=== PATIENT | female | born 1930 | race African-American/Black ===

== ENCOUNTER 2018-09-26 13:25 | Inpatient (IN) ==
[2018-09-26] MEDS ORDERED: ONDANSETRON 4 MG/2 ML VIAL IV STA (14:32)
[2018-09-26] MEDS ORDERED: LEVOFLOXACIN INJ 750 MG in PREMIX 1 EACH IV STA (14:32)
[2018-09-26] MEDS ORDERED: methylPREDNISolone SOD SUC 125 MG/2 ML VIAL IV STA (14:32)
[2018-09-26] MEDS ORDERED: PANTOPRAZOLE 40 MG VIAL IV STA (14:32)
[2018-09-26] MEDS ORDERED: ALBUTEROL NEB SOLN 5 MG/ML 20 ML/BOTTLE RESP TX SCH (15:00)
[2018-09-26 15:39] LABS: Basophils # 0.1 10*3/uL (0.0-0.2); Basophils % 1.1 % (0.0-0.8); Eosinophils # 0.2 10*3/uL (0.0-0.87); Eosinophils % 2.3 % (0.00-10.9); Hematocrit 31.9 VOL% (35.7-47.0); Hemoglobin 9.4 GM/DL (12.0-16.0); Immature Granulocytes % 0.3 %; Immature Granulocytes Absolute 0.02 #; Lymphocytes # 1.6 10*3/uL (1.4-4.0); Lymphocytes % 23.2 % (21.3-54.2); Mean Corpuscular HGB Conc 29.5 GM/DL (32-36); Mean Corpuscular Hemoglobin 25 PG (27-34); Mean Corpuscular Volume 85.5 FL (87-102); Mean Platelet Volume 11.6 FL (9.6-12.0); Monocytes # 0.8 10*3/uL (0.11-0.8); Monocytes % 10.7 % (1.7-12.7); Neutrophils # 4.4 10*3/uL (1.4-7.4); Neutrophils % 62.4 % (38.7-73.9); Platelet Count 253 T/CUMM (130-400); Red Blood Count 3.73 MC/CUMM (3.8-5.5); Red Cell Distribution Width 16.1 % (9.3-17.3)
[2018-09-26 15:48] LABS: Partial Thromboplastin Time 28.6 SECS (0-40)
[2018-09-26 15:58] LABS: Albumin 3.2 G/DL (3.4-5.0); Bilirubin,Total 0.4 MG/DL (0.2-1.0); Calcium 8.4 MG/DL (8.5-10.1); Potassium 4.1 MMOL/L (3.5-5.1); Total Protein 7.2 G/DL (6.4-8.3)
[2018-09-26 16:00] LABS: Troponin I < 0.015 NG/ML (0.00-0.045)
[2018-09-26 16:01] LABS: Apearance,Urine CLEAR (Clear); Bilirubin,Urine Negative (Negative); Blood, Urine Negative (Negative); Glucose,Urine (UA) Negative (Negative); Hyaline Casts,Urine 1 /LPF (0-3); Ketones,Urine Negative (Negative); Mucus,Urine Occasional /LPF (Occasional); Nitrite,Urine Negative (Negative); Protein,Urine Negative; RBC,Urine 2 /HPF (0-4); Squamous Epithelial Cell,Urine Occasional /HPF (0-10); Urine Color Yellow (Yellow); Urine Specific Gravity 1.015 (1.001-1.035); Urine Urobilinogen < 2.0 EU/DL (0.2-1.0); WBC,Urine 7 /HPF (0-6)
[2018-09-26] MEDS ORDERED: BENZONATATE 100 MG CAPSULE PO PRN (17:39)
[2018-09-26] MEDS ORDERED: ACETAMINOPHEN 325 MG TABLET PO PRN (17:43)
[2018-09-26] MEDS ORDERED: DEXTROSE 50% 25 GM/50 ML SYRINGE IV PRN (17:43)
[2018-09-26] MEDS ORDERED: GLUCAGON 1 MG VIAL IM PRN (17:43)
[2018-09-26] MEDS ORDERED: ONDANSETRON 4 MG/2 ML VIAL IV PRN (17:43)
[2018-09-26] MEDS: ALBUTEROL/IPRATROPIUM 3 ML NEB RESP TX SCH (19:59)
[2018-09-26] MEDS ORDERED: LINEZOLID INJ 600 MG in PREMIX 1 EACH IV SCH (21:00)
[2018-09-26] MEDS: INSULIN REGULAR 100 UNIT/ML SUBCUT SCH (22:09)
[2018-09-26] MEDS: APIXABAN 2.5 MG TABLET PO SCH (22:10)
[2018-09-26] MEDS: guaiFENesin/DM ER 600-30 MG TABLET PO SCH (22:10)
[2018-09-26] MEDS: ATORVASTATIN 40 MG TABLET PO SCH (22:10)
[2018-09-27] MEDS: ALBUTEROL/IPRATROPIUM 3 ML NEB RESP TX SCH ×4 (01:06→19:15)
[2018-09-27 05:23] LABS: Basophils % 0.2 % (0.0-0.8); Hematocrit 28.9 VOL% (35.7-47.0); Hemoglobin 8.4 GM/DL (12.0-16.0); Immature Granulocytes % 0.7 %; Immature Granulocytes Absolute 0.03 #; Lymphocytes # 0.4 10*3/uL (1.4-4.0); Lymphocytes % 9.2 % (21.3-54.2); Mean Corpuscular HGB Conc 29.1 GM/DL (32-36); Mean Corpuscular Hemoglobin 26 PG (27-34); Mean Corpuscular Volume 87.6 FL (87-102); Mean Platelet Volume 11.4 FL (9.6-12.0); Monocytes # 0.1 10*3/uL (0.11-0.8); Neutrophils # 3.9 10*3/uL (1.4-7.4); Neutrophils % 87.9 % (38.7-73.9); Platelet Count 202 T/CUMM (130-400); Red Cell Distribution Width 15.9 % (9.3-17.3); White Blood Count 4.5 T/CUMM (4-12)
[2018-09-27 05:54] LABS: Calcium 8.7 MG/DL (8.5-10.1); Osmolality,Calculated 295.5 MOS/KG (273-304); Potassium 4.4 MMOL/L (3.5-5.1)
[2018-09-27] MEDS ORDERED: SODIUM CHLORIDE 0.9% 1,000 ML IV SCH (07:30)
[2018-09-27] MEDS ORDERED: FUROSEMIDE 20 MG TABLET PO SCH (09:00)
[2018-09-27] MEDS: INSULIN REGULAR 100 UNIT/ML SUBCUT SCH ×4 (09:22→21:41)
[2018-09-27] MEDS: amLODIPine 10 MG TABLET PO SCH (09:22)
[2018-09-27] MEDS: FERROUS SULFATE 325 MG TABLET PO SCH (09:22)
[2018-09-27] MEDS: NEBIVOLOL 5 MG TABLET PO SCH (09:22)
[2018-09-27] MEDS: APIXABAN 2.5 MG TABLET PO SCH ×2 (09:22→21:16)
[2018-09-27] MEDS: guaiFENesin/DM ER 600-30 MG TABLET PO SCH ×2 (09:23→21:16)
[2018-09-27] MEDS: PANTOPRAZOLE 40 MG TABLET PO SCH (09:23)
[2018-09-27] MEDS: DICLOFENAC 1% GEL 100 GM TUBE TOP SCH ×3 (10:33→21:17)
[2018-09-27] MEDS ORDERED: LEVOFLOXACIN INJ 750 MG in PREMIX 1 EACH IV SCH (15:00)
[2018-09-27] MEDS: FUROSEMIDE 40 MG/4 ML VIAL IV SCH (16:03)
[2018-09-27] MEDS: INSULIN NPH/REGULAR 70/30 100 UNIT/ML SUBCUT SCH (16:27)
[2018-09-27] MEDS: ATORVASTATIN 40 MG TABLET PO SCH (17:29)
[2018-09-28] MEDS: ALBUTEROL/IPRATROPIUM 3 ML NEB RESP TX SCH ×4 (00:15→19:23)
[2018-09-28 05:05] LABS: Basophils % 0.1 % (0.0-0.8); Hematocrit 28.6 VOL% (35.7-47.0); Hemoglobin 8.4 GM/DL (12.0-16.0); Immature Granulocytes % 0.4 %; Immature Granulocytes Absolute 0.04 #; Lymphocytes # 0.7 10*3/uL (1.4-4.0); Lymphocytes % 7.4 % (21.3-54.2); Mean Corpuscular HGB Conc 29.4 GM/DL (32-36); Mean Corpuscular Hemoglobin 26 PG (27-34); Mean Corpuscular Volume 87.5 FL (87-102); Mean Platelet Volume 11.3 FL (9.6-12.0); Monocytes # 0.7 10*3/uL (0.11-0.8); Monocytes % 7.9 % (1.7-12.7); NRBC # 0.02 10*3/uL; Neutrophils # 7.6 10*3/uL (1.4-7.4); Neutrophils % 84.2 % (38.7-73.9); Platelet Count 231 T/CUMM (130-400); Red Blood Count 3.27 MC/CUMM (3.8-5.5); Red Cell Distribution Width 16.3 % (9.3-17.3)
[2018-09-28 05:19] LABS: Osmolality,Calculated 297.4 MOS/KG (273-304); Potassium 4.6 MMOL/L (3.5-5.1)
[2018-09-28] MEDS ORDERED: INSULIN NPH/REGULAR 70/30 100 UNIT/ML SUBCUT SCH ×2 (07:30→10:37)
[2018-09-28] MEDS ORDERED: LEVOFLOXACIN INJ 750 MG in PREMIX 1 EACH IV SCH (09:00)
[2018-09-28] MEDS: INSULIN REGULAR 100 UNIT/ML SUBCUT SCH ×4 (10:13→20:47)
[2018-09-28] MEDS: FUROSEMIDE 40 MG/4 ML VIAL IV SCH (10:13)
[2018-09-28] MEDS: guaiFENesin/DM ER 600-30 MG TABLET PO SCH ×2 (10:14→20:23)
[2018-09-28] MEDS: PANTOPRAZOLE 40 MG TABLET PO SCH (10:14)
[2018-09-28] MEDS: NEBIVOLOL 5 MG TABLET PO SCH (10:14)
[2018-09-28] MEDS: APIXABAN 2.5 MG TABLET PO SCH ×2 (10:15→20:23)
[2018-09-28] MEDS: amLODIPine 10 MG TABLET PO SCH (10:15)
[2018-09-28] MEDS: FERROUS SULFATE 325 MG TABLET PO SCH (10:15)
[2018-09-28] MEDS: DICLOFENAC 1% GEL 100 GM TUBE TOP SCH ×3 (11:58→20:23)
[2018-09-28] MEDS: INSULIN NPH/REGULAR 70/30 100 UNIT/ML SUBCUT SCH (16:47)
[2018-09-28] MEDS: ATORVASTATIN 40 MG TABLET PO SCH (17:49)
[2018-09-29] MEDS: ALBUTEROL/IPRATROPIUM 3 ML NEB RESP TX SCH ×2 (01:00→07:45)
[2018-09-29 05:35] LABS: Basophils % 0.1 % (0.0-0.8); Eosinophils % 0.1 % (0.00-10.9); Hematocrit 27.6 VOL% (35.7-47.0); Hemoglobin 8.1 GM/DL (12.0-16.0); Immature Granulocytes % 0.6 %; Immature Granulocytes Absolute 0.04 #; Lymphocytes # 1.3 10*3/uL (1.4-4.0); Lymphocytes % 18.6 % (21.3-54.2); Mean Corpuscular HGB Conc 29.3 GM/DL (32-36); Mean Corpuscular Hemoglobin 25 PG (27-34); Monocytes # 0.7 10*3/uL (0.11-0.8); Monocytes % 9.5 % (1.7-12.7); Neutrophils # 5.1 10*3/uL (1.4-7.4); Neutrophils % 71.1 % (38.7-73.9); Platelet Count 254 T/CUMM (130-400); Red Blood Count 3.21 MC/CUMM (3.8-5.5); Red Cell Distribution Width 16.4 % (9.3-17.3); White Blood Count 7.1 T/CUMM (4-12)
[2018-09-29 05:57] LABS: Potassium 3.9 MMOL/L (3.5-5.1)
[2018-09-29 07:55] VITALS: BP 122/63
[2018-09-29] MEDS ORDERED: FUROSEMIDE 40 MG/4 ML VIAL IV SCH (09:00)
[2018-09-29] MEDS: INSULIN REGULAR 100 UNIT/ML SUBCUT SCH (09:39)
[2018-09-29] MEDS: PANTOPRAZOLE 40 MG TABLET PO SCH (09:41)
[2018-09-29] MEDS: NEBIVOLOL 5 MG TABLET PO SCH (09:41)
[2018-09-29] MEDS: APIXABAN 2.5 MG TABLET PO SCH (09:41)
[2018-09-29] MEDS: amLODIPine 10 MG TABLET PO SCH (09:41)
[2018-09-29] MEDS: DICLOFENAC 1% GEL 100 GM TUBE TOP SCH (09:41)
[2018-09-29] MEDS: guaiFENesin/DM ER 600-30 MG TABLET PO SCH (09:41)
[2018-09-29] MEDS: FERROUS SULFATE 325 MG TABLET PO SCH (09:41)
== END 2018-09-29 11:45 | disposition home health service (06) | DRG 193 ==
LOC: N.ED 13:25 → SUATTDRO 17:43 → N.EDINP 17:43 → N.2E 19:32
PROVIDERS: ADMIT Hospitalist; ATTEND Internal Medicine

== ENCOUNTER 2020-02-06 23:18 | Inpatient (IN) ==
[2020-02-07] MEDS ORDERED: ASPIRIN 325 MG TABLET PO STA (00:12)
[2020-02-07] MEDS ORDERED: SODIUM CHLORIDE 0.9% 500 ML IV STA (00:12)
[2020-02-07] MEDS ORDERED: ONDANSETRON 4 MG/2 ML VIAL IV STA (00:13)
[2020-02-07 00:52] LABS: Apearance,Urine CLEAR (Clear); Bacteria,Urine Occasional /HPF (Few); Bilirubin,Urine Negative (Negative); Blood, Urine Negative (Negative); Glucose,Urine (UA) Negative (Negative); Hyaline Casts,Urine 1 /LPF (0-3); Ketones,Urine Negative (Negative); Mucus,Urine Occasional /LPF (Occasional); Nitrite,Urine Negative (Negative); Protein,Urine >=500 MG/DL; RBC,Urine 1 /HPF (0-4); Squamous Epithelial Cell,Urine Occasional /HPF (0-10); Urine Color Yellow (Yellow); Urine Specific Gravity 1.015 (1.001-1.035); Urine Urobilinogen < 2.0 EU/DL (0.2-1.0); WBC,Urine 5 /HPF (0-6)
[2020-02-07 01:21] LABS: Alanine Aminotransferase 15 U/L (13-56); Albumin 3.4 G/DL (3.4-5.0); Alkaline Phosphatase 81 U/L (45-117); Aspartate Amino Transferase 30 U/L (0-37); Bilirubin,Total < 0.39 MG/DL (0.2-1.0); Blood Urea Nitrogen 24 MG/DL (7-18); Calcium 8.8 MG/DL (8.5-10.1); Estimated Glom Filtration Rate 30 ML/MIN; Glucose 107 MG/DL (74-106); Osmolality,Calculated 282.4 MOS/KG (273-304); Total Protein 7.8 G/DL (6.4-8.3)
[2020-02-07] MEDS ORDERED: ENOXAPARIN 100 MG/ML SYRINGE SUBCUT STA (01:25)
[2020-02-07 01:29] LABS: Basophils % 0.6 % (0.0-0.8); Eosinophils % 0.6 % (0.00-10.9); Hematocrit 38.4 VOL% (35.7-47.0); Hemoglobin 11.6 GM/DL (12.0-16.0); Immature Granulocytes % 0.3 %; Immature Granulocytes Absolute 0.01 #; Lymphocytes # 2.4 10*3/uL (1.4-4.0); Lymphocytes % 70.5 % (21.3-54.2); Mean Corpuscular HGB Conc 30.2 GM/DL (32-36); Mean Corpuscular Volume 85.7 FL (87-102); Mean Platelet Volume 11.9 FL (9.6-12.0); Monocytes % 9.6 % (1.7-12.7); Neutrophils % 18.4 % (38.7-73.9); Platelet Count 170 T/CUMM (130-400); Red Blood Count 4.48 MC/CUMM (3.8-5.5); Red Cell Distribution Width 15.4 % (9.3-17.3); White Blood Count 3.4 T/CUMM (4-12)
[2020-02-07 01:30] LABS: PT Patient Result 11.1 SECS (9.8-11.9); Partial Thromboplastin Time 27.7 SECS (23.9-33.8)
[2020-02-07 01:42] LABS: Barbiturates Screen,Urine Negative (Negative); Benzodiazepines Screen,Urine Negative (Negative); Cannabinoid Screen,Urine Negative (Negative); Opiate Screen,Urine Negative (Negative); Phencyclidine Screen,Urine Negative (Negative)
[2020-02-07 01:54] LABS: Hypochromasia Slight; Lymphocytes 77 % (20-55); Platelet Estimate Normal; Segmented Neutrophils 15 % (50-85); Total Cells Counted 100
[2020-02-07] MEDS ORDERED: ONDANSETRON 4 MG/2 ML VIAL IV PRN (02:10)
[2020-02-07] MEDS ORDERED: DEXTROSE 50% 25 GM/50 ML VIAL IV PRN (02:10)
[2020-02-07] MEDS ORDERED: ACETAMINOPHEN 325 MG TABLET PO PRN (02:10)
[2020-02-07] MEDS ORDERED: GLUCAGON 1 MG VIAL IM PRN (02:10)
[2020-02-07] MEDS ORDERED: ALBUTEROL 2.5 MG/3 ML NEB RESP TX PRN (04:09)
[2020-02-07] MEDS ORDERED: hydrALAZINE 20 MG/1 ML VIAL IV PRN (04:09)
[2020-02-07 06:04] LABS: Basophils % 0.4 % (0.0-0.8); Eosinophils % 0.4 % (0.00-10.9); Hematocrit 37.1 VOL% (35.7-47.0); Hemoglobin 11.2 GM/DL (12.0-16.0); Lymphocytes # 1.8 10*3/uL (1.4-4.0); Lymphocytes % 64.4 % (21.3-54.2); Mean Corpuscular HGB Conc 30.2 GM/DL (32-36); Mean Corpuscular Volume 85.7 FL (87-102); Mean Platelet Volume 12.3 FL (9.6-12.0); Monocytes % 10.2 % (1.7-12.7); Neutrophils % 24.6 % (38.7-73.9); Platelet Count 159 T/CUMM (130-400); Red Blood Count 4.33 MC/CUMM (3.8-5.5); Red Cell Distribution Width 15.4 % (9.3-17.3); White Blood Count 2.8 T/CUMM (4-12)
[2020-02-07 06:15] LABS: Bilirubin,Total 1.2 MG/DL (0.2-1.0); Calcium 8.4 MG/DL (8.5-10.1); Osmolality,Calculated 283.3 MOS/KG (273-304); Total Protein 6.9 G/DL (6.4-8.3)
[2020-02-07 06:18] LABS: Risk Ratio 3.74; VLDL CHOLESTEROL 27.4 MG/DL
[2020-02-07 06:29] LABS: Eosinophils 2 % (0-10); Lymphocytes 57 % (20-55); Platelet Estimate Adequate; Segmented Neutrophils 28 % (50-85); Total Cells Counted 100
[2020-02-07 06:30] LABS: Atypical Lymphocytes Few; Hypochromasia Slight
[2020-02-07] MEDS: INSULIN REGULAR 100 UNIT/ML SUBCUT SCH ×4 (08:16→21:59)
[2020-02-07] MEDS: APIXABAN 2.5 MG TABLET PO SCH ×2 (09:24→21:57)
[2020-02-07] MEDS: FERROUS SULFATE 325 MG TABLET PO SCH (09:24)
[2020-02-07] MEDS: NEBIVOLOL 5 MG TABLET PO SCH (09:24)
[2020-02-07] MEDS ORDERED: ATORVASTATIN 40 MG TABLET PO SCH (18:00)
[2020-02-08] MEDS: INSULIN REGULAR 100 UNIT/ML SUBCUT SCH ×2 (07:34→12:21)
[2020-02-08] MEDS: NEBIVOLOL 5 MG TABLET PO SCH (09:15)
[2020-02-08] MEDS: APIXABAN 2.5 MG TABLET PO SCH (09:15)
[2020-02-08] MEDS: FERROUS SULFATE 325 MG TABLET PO SCH (09:16)
[2020-02-08] MEDS ORDERED: ASPIRIN EC 81 MG TABLET PO SCH (10:30)
[2020-02-08 12:02] VITALS: BP 138/84
== END 2020-02-08 14:46 | disposition home health service (06) | DRG 281 ==
LOC: N.ED 23:18 → SUATTDRO 02-07 02:17 → N.EDINP 02-07 02:17 → N.TELES 02-07 03:26
PROVIDERS: ADMIT Internal Medicine; ATTEND Internal Medicine

== ENCOUNTER 2020-05-31 11:08 | Observation (INO) ==
[2020-05-31 15:02] LABS: Calcium 8.7 MG/DL (8.5-10.1)
[2020-05-31 15:10] LABS: Albumin 3.6 G/DL (3.4-5.0); Bilirubin,Total 0.57 MG/DL (0.2-1.0); Osmolality,Calculated 293.8 MOS/KG (273-304); Total Protein 7.8 G/DL (6.4-8.3)
[2020-05-31] MEDS ORDERED: DOCUSATE SODIUM 100 MG CAPSULE PO PRN (16:21)
[2020-05-31] MEDS ORDERED: DEXTROSE 50% 25 GM/50 ML VIAL IV PRN (16:21)
[2020-05-31] MEDS ORDERED: GLUCAGON 1 MG VIAL IM PRN (16:21)
[2020-05-31] MEDS ORDERED: ONDANSETRON 4 MG/2 ML VIAL IV PRN (16:21)
[2020-05-31] MEDS ORDERED: ACETAMINOPHEN 325 MG TABLET PO PRN (16:21)
[2020-05-31 16:54] LABS: Hematocrit 41.6 VOL% (35.7-47.0); Immature Granulocytes % 0.3 %; Immature Granulocytes Absolute 0.01 #; Lymphocytes # 0.3 10*3/uL (1.4-4.0); Lymphocytes % 7.4 % (21.3-54.2); Mean Corpuscular HGB Conc 31.3 GM/DL (32-36); Mean Corpuscular Volume 83.9 FL (87-102); Mean Platelet Volume 12.2 FL (9.6-12.0); Monocytes % 5.4 % (1.7-12.7); NRBC # 0.04 10*3/uL; Neutrophils % 86.9 % (38.7-73.9); Platelet Count 201 T/CUMM (130-400); Red Blood Count 4.96 MC/CUMM (3.8-5.5); Red Cell Distribution Width 17.6 % (9.3-17.3); White Blood Count 3.5 T/CUMM (4-12)
[2020-05-31] MEDS: INSULIN LISPRO 100 UNIT/ML SUBCUT SCH ×2 (18:27→21:00)
[2020-05-31] MEDS: BUMETANIDE 1 MG/4 ML VIAL IV SCH (18:56)
[2020-05-31] MEDS: hydrALAZINE 20 MG/1 ML VIAL IV PRN (21:05)
[2020-06-01 05:08] LABS: Albumin 3.4 G/DL (3.4-5.0); Bilirubin,Total 1.2 MG/DL (0.2-1.0); Calcium 8.6 MG/DL (8.5-10.1); Osmolality,Calculated 293.1 MOS/KG (273-304); Total Protein 7.2 G/DL (6.4-8.3)
[2020-06-01 05:16] LABS: Amorphous Crystals,Urine Moderate /HPF (Few); Bacteria,Urine Few /HPF (Few); Bilirubin,Urine Negative (Negative); Blood, Urine Negative (Negative); Glucose,Urine (UA) Negative (Negative); Ketones,Urine Negative (Negative); Mucus,Urine Occasional /LPF (Occasional); Nitrite,Urine Negative (Negative); Protein,Urine 100 MG/DL; Squamous Epithelial Cell,Urine Occasional /HPF (0-10); Urine Appearance CLOUDY (Clear); Urine Color Yellow (Yellow); Urine Specific Gravity 1.011 (1.001-1.035); Urine Urobilinogen < 2.0 EU/DL (0.2-1.0); WBC,Urine 1 /HPF (0-6)
[2020-06-01 06:02] LABS: Hematocrit 44.4 VOL% (35.7-47.0); Hemoglobin 14.4 GM/DL (12.0-16.0); Immature Granulocytes % 0.7 %; Immature Granulocytes Absolute 0.04 #; Lymphocytes # 0.3 10*3/uL (1.4-4.0); Lymphocytes % 5.8 % (21.3-54.2); Mean Corpuscular HGB Conc 32.4 GM/DL (32-36); Mean Corpuscular Volume 82.8 FL (87-102); Mean Platelet Volume 11.7 FL (9.6-12.0); NRBC # 0.04 10*3/uL; Neutrophils % 84.5 % (38.7-73.9); Platelet Count 185 T/CUMM (130-400); Red Blood Count 5.36 MC/CUMM (3.8-5.5); Red Cell Distribution Width 18.6 % (9.3-17.3); White Blood Count 5.7 T/CUMM (4-12)
[2020-06-01] MEDS ORDERED: SODIUM POLYSTYRENE SULFATE 15 GM/60 ML BOTTLE PO ONE (07:11)
[2020-06-01] MEDS: BUMETANIDE 1 MG/4 ML VIAL IV SCH ×2 (08:20→16:28)
[2020-06-01] MEDS: APIXABAN 2.5 MG TABLET PO SCH ×2 (08:21→22:10)
[2020-06-01] MEDS: PANTOPRAZOLE 40 MG TABLET PO SCH (08:21)
[2020-06-01] MEDS: FERROUS SULFATE 325 MG TABLET PO SCH (08:21)
[2020-06-01] MEDS: INSULIN LISPRO 100 UNIT/ML SUBCUT SCH ×4 (08:22→22:10)
[2020-06-01] MEDS ORDERED: NEBIVOLOL 5 MG TABLET PO SCH (09:00)
[2020-06-01 09:59] LABS: Parathyroid Hormone Intact 528.4 PG/ML (18.4-80.1)
[2020-06-01] MEDS: hydrALAZINE 20 MG/1 ML VIAL IV PRN (11:14)
[2020-06-01] MEDS ORDERED: CHOLECALCIFEROL 1,000 UNIT TABLET PO ONE (14:10)
[2020-06-01] MEDS: ATORVASTATIN 40 MG TABLET PO SCH (16:28)
[2020-06-02] MEDS: hydrALAZINE 20 MG/1 ML VIAL IV PRN (00:32)
[2020-06-02 04:40] LABS: ABG Base Excess -3.1 MMOL/L (-2.5-2.5); ABG HCO3 19.2 MMOL/L (20-26); ABG PCO2 27.2 MM HG (35-48); ABG PH 7.467 (7.35-7.45); ABG PO2 81.3 MM HG (80-95); ABG TCO2 20.1 MMOL/L (23-27); Allen Test Positive
[2020-06-02 06:58] LABS: Hematocrit 40.6 VOL% (35.7-47.0); Hemoglobin 13.1 GM/DL (12.0-16.0); Immature Granulocytes % 0.5 %; Immature Granulocytes Absolute 0.03 #; Lymphocytes # 0.4 10*3/uL (1.4-4.0); Mean Corpuscular HGB Conc 32.3 GM/DL (32-36); Mean Corpuscular Volume 82.2 FL (87-102); Mean Platelet Volume 11.1 FL (9.6-12.0); Monocytes % 9.4 % (1.7-12.7); Neutrophils % 83.1 % (38.7-73.9); Platelet Count 192 T/CUMM (130-400); Red Blood Count 4.94 MC/CUMM (3.8-5.5); Red Cell Distribution Width 18.2 % (9.3-17.3)
[2020-06-02 07:27] LABS: Calcium 8.5 MG/DL (8.5-10.1); Osmolality,Calculated 301.5 MOS/KG (273-304)
[2020-06-02 07:43] LABS: Immunoglobulin A 306 MG/DL (70-400); Immunoglobulin G 1200 MG/DL (700-1600); Immunoglobulin M 245 MG/DL (40-230)
[2020-06-02] MEDS: INSULIN LISPRO 100 UNIT/ML SUBCUT SCH ×4 (08:48→22:50)
[2020-06-02] MEDS: APIXABAN 2.5 MG TABLET PO SCH ×2 (08:50→22:49)
[2020-06-02] MEDS: FERROUS SULFATE 325 MG TABLET PO SCH (08:50)
[2020-06-02] MEDS: PANTOPRAZOLE 40 MG TABLET PO SCH (08:51)
[2020-06-02] MEDS: BUMETANIDE 1 MG/4 ML VIAL IV SCH (08:53)
[2020-06-02] MEDS: NEBIVOLOL 10 MG TABLET PO SCH (08:53)
[2020-06-02] MEDS: ATORVASTATIN 40 MG TABLET PO SCH (16:09)
[2020-06-03 06:04] LABS: Eosinophils % 0.5 % (0.00-10.9); Hematocrit 40.3 VOL% (35.7-47.0); Hemoglobin 12.8 GM/DL (12.0-16.0); Immature Granulocytes % 0.3 %; Immature Granulocytes Absolute 0.02 #; Lymphocytes % 16.1 % (21.3-54.2); Mean Corpuscular HGB Conc 31.8 GM/DL (32-36); Mean Corpuscular Volume 82.8 FL (87-102); Mean Platelet Volume 11.6 FL (9.6-12.0); Monocytes % 10.9 % (1.7-12.7); Neutrophils % 72.2 % (38.7-73.9); Platelet Count 192 T/CUMM (130-400); Red Blood Count 4.87 MC/CUMM (3.8-5.5); Red Cell Distribution Width 17.8 % (9.3-17.3)
[2020-06-03 06:19] LABS: Calcium 8.3 MG/DL (8.5-10.1); Osmolality,Calculated 307.1 MOS/KG (273-304)
[2020-06-03 07:57] LABS: Total Protein (Chem) 7.1 G/DL (6.4-8.3)
[2020-06-03 07:57] LABS: Immunoglobulin A (Chem) 306 MG/DL (70-400); Immunoglobulin G (Chem) 1200 MG/DL (700-1600)
[2020-06-03 07:58] LABS: Immunoglobulin M (Chem) 245 MG/DL (40-230)
[2020-06-03] MEDS: INSULIN LISPRO 100 UNIT/ML SUBCUT SCH ×2 (08:30→12:30)
[2020-06-03] MEDS ORDERED: MEGESTROL 400 MG/10 ML UDCUP PO SCH (09:00)
[2020-06-03 09:09] VITALS: BP 175/96
[2020-06-03 09:15] LABS: Albumin (SPE) 4.4 G/DL (3.2-5.3); Alpha 1 (SPE) 0.2 G/DL (0.1-0.4); Alpha 2 (SPE) 0.6 G/DL (0.4-1.0); Alpha 2 (SPE) Rel % 8.8 %; Beta (SPE) 0.6 G/DL (0.5-1.1); Beta (SPE) Rel % 8.2 %; Gamma (SPE) 1.3 G/DL (0.7-1.7)
[2020-06-03] MEDS: NEBIVOLOL 10 MG TABLET PO SCH (09:24)
[2020-06-03] MEDS: FERROUS SULFATE 325 MG TABLET PO SCH (09:24)
[2020-06-03] MEDS: PANTOPRAZOLE 40 MG TABLET PO SCH (09:24)
[2020-06-03] MEDS: BUMETANIDE 1 MG/4 ML VIAL IV SCH (09:24)
[2020-06-03] MEDS ORDERED: hydrALAZINE 25 MG TABLET PO SCH (15:00)
[2020-06-04 09:39] LABS: Immuno Free Light Chain Kappa 6.53 MG/DL (0.33-1.94); Immuno Free Light Chain Lambda 4.99 MG/DL (0.57-2.63); Immuno Free Light Chain Ratio 1.31 MG/DL (0.26-1.65)
== END 2020-06-03 14:35 | disposition home health service (06) ==
LOC: N.EDINP 11:08 → N.ED 11:08 → SUATTDRO 16:21 → N.TELES 17:30
PROVIDERS: ADMIT Family Medicine; ATTEND Hospitalist

== ENCOUNTER 2020-06-16 06:10 | Inpatient (IN) ==
[2020-06-16 07:14] LABS: Albumin 3.4 G/DL (3.4-5.0); Bilirubin,Total 0.9 MG/DL (0.2-1.0); Calcium 8.9 MG/DL (8.5-10.1); INR 1.2; Osmolality,Calculated 303.1 MOS/KG (273-304); PT Patient Result 12.3 SECS (9.8-11.9); Partial Thromboplastin Time 30.1 SECS (23.9-33.8); Total Protein 7.3 G/DL (6.4-8.3)
[2020-06-16] MEDS ORDERED: LABETALOL 20 MG/4 ML SYRINGE IV STA (07:24)
[2020-06-16 07:25] LABS: Bilirubin,Urine Negative (Negative); Blood, Urine Negative (Negative); Glucose,Urine (UA) Negative (Negative); Ketones,Urine Negative (Negative); Mucus,Urine Occasional /LPF (Occasional); Nitrite,Urine Positive (Negative); Protein,Urine 100 MG/DL; Squamous Epithelial Cell,Urine Occasional /HPF (0-10); Urine Appearance CLEAR (Clear); Urine Color Yellow (Yellow); Urine Specific Gravity 1.013 (1.001-1.035); Urine Urobilinogen < 2.0 EU/DL (0.2-1.0); WBC,Urine 1 /HPF (0-6)
[2020-06-16 07:28] LABS: Basophils % 0.6 % (0.0-0.8); Eosinophils # 0.1 10*3/uL (0.0-0.87); Eosinophils % 1.7 % (0.00-10.9); Hematocrit 45.6 VOL% (35.7-47.0); Hemoglobin 13.7 GM/DL (12.0-16.0); Immature Granulocytes % 0.4 %; Immature Granulocytes Absolute 0.02 #; Lymphocytes # 2.2 10*3/uL (1.4-4.0); Lymphocytes % 41.7 % (21.3-54.2); Mean Corpuscular Volume 85.9 FL (87-102); Monocytes % 6.8 % (1.7-12.7); Neutrophils % 48.8 % (38.7-73.9); Platelet Count 91 T/CUMM (130-400); Red Blood Count 5.31 MC/CUMM (3.8-5.5); Red Cell Distribution Width 17.8 % (9.3-17.3); White Blood Count 5.3 T/CUMM (4-12)
[2020-06-16 08:02] LABS: Atypical Lymphocytes Few
[2020-06-16 08:03] LABS: Hypochromasia 2+; Platelet Estimate Adequate; Polychromasia Slight
[2020-06-16] MEDS ORDERED: LABETALOL 20 MG/4 ML SYRINGE IV PRN (08:42)
[2020-06-16] MEDS: DEXTROSE 5% NACL 0.45% 1,000 ML IV SCH (12:05)
[2020-06-16] MEDS: CLOPIDOGREL 75 MG TABLET PO SCH (15:35)
[2020-06-17] MEDS: APIXABAN 2.5 MG TABLET PO SCH ×2 (00:34→11:46)
[2020-06-17] MEDS: ATORVASTATIN 40 MG TABLET PO SCH ×2 (00:34→20:24)
[2020-06-17 06:01] LABS: Basophils % 0.4 % (0.0-0.8); Eosinophils # 0.1 10*3/uL (0.0-0.87); Eosinophils % 1.5 % (0.00-10.9); Hematocrit 40.3 VOL% (35.7-47.0); Hemoglobin 12.2 GM/DL (12.0-16.0); Immature Granulocytes % 0.2 %; Immature Granulocytes Absolute 0.01 #; Lymphocytes # 1.9 10*3/uL (1.4-4.0); Lymphocytes % 36.1 % (21.3-54.2); Mean Corpuscular HGB Conc 30.3 GM/DL (32-36); Neutrophils % 52.8 % (38.7-73.9); Red Blood Count 4.74 MC/CUMM (3.8-5.5); Red Cell Distribution Width 17.2 % (9.3-17.3); White Blood Count 5.2 T/CUMM (4-12)
[2020-06-17 06:32] LABS: Platelet Count 99 T/CUMM (130-400)
[2020-06-17 06:41] LABS: Calcium 8.6 MG/DL (8.5-10.1); Risk Ratio 4.58; VLDL CHOLESTEROL 24.2 MG/DL
[2020-06-17 06:57] LABS: Anisocytosis 1+; Ovalocytes Few; Platelet Estimate Decreased; Poikilocytosis 1+
[2020-06-17 06:58] LABS: Burr Cells Few
[2020-06-17] MEDS: DEXTROSE 5% NACL 0.45% 1,000 ML IV SCH (08:47)
[2020-06-17] MEDS: CLOPIDOGREL 75 MG TABLET PO SCH (11:47)
[2020-06-17] MEDS ORDERED: hydrALAZINE 20 MG/1 ML VIAL IV ONE (12:41)
[2020-06-17] MEDS: ENOXAPARIN 40 MG/0.4 ML SYRINGE SUBCUT SCH (12:50)
[2020-06-18] MEDS: ENOXAPARIN 40 MG/0.4 ML SYRINGE SUBCUT SCH ×2 (00:15→14:52)
[2020-06-18] MEDS: DEXTROSE 5% NACL 0.45% 1,000 ML IV SCH ×2 (04:30→23:17)
[2020-06-18 06:12] LABS: Basophils % 0.3 % (0.0-0.8); Eosinophils # 0.1 10*3/uL (0.0-0.87); Eosinophils % 1.3 % (0.00-10.9); Hematocrit 40.1 VOL% (35.7-47.0); Hemoglobin 12.4 GM/DL (12.0-16.0); Immature Granulocytes % 0.3 %; Immature Granulocytes Absolute 0.02 #; Lymphocytes # 1.6 10*3/uL (1.4-4.0); Lymphocytes % 24.3 % (21.3-54.2); Mean Corpuscular HGB Conc 30.9 GM/DL (32-36); Mean Corpuscular Volume 84.6 FL (87-102); Mean Platelet Volume 13.2 FL (9.6-12.0); Monocytes % 11.5 % (1.7-12.7); Neutrophils % 62.3 % (38.7-73.9); Platelet Count 126 T/CUMM (130-400); Red Blood Count 4.74 MC/CUMM (3.8-5.5); Red Cell Distribution Width 17.5 % (9.3-17.3); White Blood Count 6.4 T/CUMM (4-12)
[2020-06-18 06:29] LABS: Calcium 8.8 MG/DL (8.5-10.1); Osmolality,Calculated 302.1 MOS/KG (273-304)
[2020-06-18 06:35] LABS: Anisocytosis 2+; Platelet Estimate Adequate
[2020-06-18 06:36] LABS: Burr Cells Few; Ovalocytes Few; Poikilocytosis Slight
[2020-06-18] MEDS: CLOPIDOGREL 75 MG TABLET PO SCH (13:44)
[2020-06-18] MEDS: DEXTROSE 5% 1,000 ML IV SCH ×3 (14:53→23:16)
[2020-06-18] MEDS: ATORVASTATIN 40 MG TABLET PO SCH (20:10)
[2020-06-19] MEDS: ENOXAPARIN 40 MG/0.4 ML SYRINGE SUBCUT SCH (00:59)
[2020-06-19] MEDS: DEXTROSE 5% 1,000 ML IV SCH ×3 (04:42→19:19)
[2020-06-19 06:15] LABS: Basophils % 0.6 % (0.0-0.8); Eosinophils # 0.1 10*3/uL (0.0-0.87); Eosinophils % 1.6 % (0.00-10.9); Hematocrit 39.3 VOL% (35.7-47.0); Hemoglobin 12.1 GM/DL (12.0-16.0); Immature Granulocytes % 0.2 %; Immature Granulocytes Absolute 0.01 #; Lymphocytes # 1.5 10*3/uL (1.4-4.0); Mean Corpuscular HGB Conc 30.8 GM/DL (32-36); Mean Corpuscular Volume 84.5 FL (87-102); Monocytes % 12.2 % (1.7-12.7); Neutrophils % 56.4 % (38.7-73.9); Platelet Count 123 T/CUMM (130-400); Red Blood Count 4.65 MC/CUMM (3.8-5.5); Red Cell Distribution Width 17.2 % (9.3-17.3); White Blood Count 5.1 T/CUMM (4-12)
[2020-06-19 06:25] LABS: Calcium 8.2 MG/DL (8.5-10.1); Osmolality,Calculated 288.3 MOS/KG (273-304)
[2020-06-19 06:46] LABS: Elliptocytes Few; Hypochromasia Slight; Microcytosis Slight
[2020-06-19] MEDS: ATORVASTATIN 40 MG TABLET PO SCH (20:19)
[2020-06-20] MEDS: DEXTROSE 5% 1,000 ML IV SCH ×2 (02:13→10:02)
[2020-06-20 06:37] LABS: Calcium 7.9 MG/DL (8.5-10.1); Osmolality,Calculated 271.4 MOS/KG (273-304)
[2020-06-20 07:41] LABS: Basophils % 0.2 % (0.0-0.8); Eosinophils # 0.1 10*3/uL (0.0-0.87); Eosinophils % 1.8 % (0.00-10.9); Hematocrit 38.1 VOL% (35.7-47.0); Hemoglobin 11.9 GM/DL (12.0-16.0); Immature Granulocytes % 0.3 %; Immature Granulocytes Absolute 0.02 #; Lymphocytes # 2.3 10*3/uL (1.4-4.0); Lymphocytes % 37.8 % (21.3-54.2); Mean Corpuscular HGB Conc 31.2 GM/DL (32-36); Mean Corpuscular Volume 83.9 FL (87-102); Monocytes % 13.4 % (1.7-12.7); Neutrophils % 46.5 % (38.7-73.9); Platelet Count 166 T/CUMM (130-400); Red Blood Count 4.54 MC/CUMM (3.8-5.5); Red Cell Distribution Width 16.8 % (9.3-17.3)
[2020-06-20 07:54] LABS: INR 1.1; PT Patient Result 11.9 SECS (9.8-11.9)
[2020-06-20 08:00] LABS: Acanthocytes Few; Hypochromasia 1+; Microcytosis 1+; Ovalocytes Slight
[2020-06-20] MEDS ORDERED: LACTATED RINGERS 1,000 ML IV SCH (08:00)
[2020-06-20] MEDS ORDERED: CIPROFLOXACIN INJ 400 MG in PREMIX 1 EACH IV ONE (08:00)
[2020-06-20 08:01] LABS: Platelet Estimate Adequate
[2020-06-20] MEDS ORDERED: LIDOCAINE 2% 5 ML VIAL ONE (14:07)
[2020-06-20] MEDS ORDERED: propofoL 200 MG/20 ML VIAL IV ONE (14:07)
[2020-06-20] MEDS: ATORVASTATIN 40 MG TABLET PO SCH (20:42)
[2020-06-21 05:49] LABS: Calcium 8.1 MG/DL (8.5-10.1); Osmolality,Calculated 271.2 MOS/KG (273-304)
[2020-06-21] MEDS: APIXABAN 2.5 MG TABLET PO SCH ×2 (09:56→21:46)
[2020-06-21] MEDS: ATORVASTATIN 40 MG TABLET PO SCH (21:45)
[2020-06-22 06:02] LABS: Basophils % 0.1 % (0.0-0.8); Eosinophils # 0.1 10*3/uL (0.0-0.87); Hematocrit 37.3 VOL% (35.7-47.0); Hemoglobin 11.9 GM/DL (12.0-16.0); Immature Granulocytes % 0.1 %; Immature Granulocytes Absolute 0.01 #; Lymphocytes # 1.8 10*3/uL (1.4-4.0); Lymphocytes % 26.9 % (21.3-54.2); Mean Corpuscular HGB Conc 31.9 GM/DL (32-36); Mean Corpuscular Volume 81.6 FL (87-102); Mean Platelet Volume 12.8 FL (9.6-12.0); Monocytes % 17.1 % (1.7-12.7); Neutrophils % 54.8 % (38.7-73.9); Platelet Count 245 T/CUMM (130-400); Red Blood Count 4.57 MC/CUMM (3.8-5.5); Red Cell Distribution Width 16.5 % (9.3-17.3); White Blood Count 6.7 T/CUMM (4-12)
[2020-06-22 06:30] LABS: Amorphous Crystals,Urine Occasional /HPF (Few); Bacteria,Urine Moderate /HPF (Few); Bilirubin,Urine Negative (Negative); Blood, Urine Negative (Negative); Glucose,Urine (UA) Negative (Negative); Hyaline Casts,Urine 1 /LPF (0-3); Ketones,Urine Negative (Negative); Mucus,Urine Occasional /LPF (Occasional); Nitrite,Urine Negative (Negative); Protein,Urine 30 MG/DL; RBC,Urine 1 /HPF (0-4); Squamous Epithelial Cell,Urine Occasional /HPF (0-10); Urine Appearance CLEAR (Clear); Urine Color Yellow (Yellow); Urine Specific Gravity 1.014 (1.001-1.035); WBC,Urine 3 /HPF (0-6)
[2020-06-22 06:33] LABS: Eosinophils 2 % (0-10); Lymphocytes 26 % (20-55); Platelet Estimate Normal; Segmented Neutrophils 52 % (50-85); Total Cells Counted 100
[2020-06-22] MEDS: APIXABAN 2.5 MG TABLET PO SCH ×2 (09:33→23:16)
[2020-06-22] MEDS: ATORVASTATIN 40 MG TABLET PO SCH (23:16)
[2020-06-23 05:43] LABS: Basophils % 0.3 % (0.0-0.8); Eosinophils % 0.3 % (0.00-10.9); Hematocrit 37.2 VOL% (35.7-47.0); Hemoglobin 11.9 GM/DL (12.0-16.0); Immature Granulocytes % 0.1 %; Immature Granulocytes Absolute 0.01 #; Lymphocytes # 1.3 10*3/uL (1.4-4.0); Lymphocytes % 18.3 % (21.3-54.2); Mean Corpuscular Volume 81.6 FL (87-102); Mean Platelet Volume 12.3 FL (9.6-12.0); Platelet Count 295 T/CUMM (130-400); Red Blood Count 4.56 MC/CUMM (3.8-5.5); Red Cell Distribution Width 16.7 % (9.3-17.3); White Blood Count 6.9 T/CUMM (4-12)
[2020-06-23 06:07] LABS: Burr Cells Slight; Eosinophils 1 % (0-10); Hypochromasia 1+; Lymphocytes 28 % (20-55); Ovalocytes Slight; Platelet Estimate Adequate; Segmented Neutrophils 52 % (50-85); Total Cells Counted 100
[2020-06-23 06:08] LABS: Microcytosis Slight
[2020-06-23 06:32] LABS: Calcium 8.2 MG/DL (8.5-10.1); Osmolality,Calculated 281.2 MOS/KG (273-304)
[2020-06-23] MEDS ORDERED: AZITHROMYCIN INJ 250 MG in SODIUM CHLORIDE 0.9% 250 ML IV SCH (08:30)
[2020-06-23] MEDS ORDERED: cefTRIAXone 1,000 MG in SYRINGE 1 EACH IV SCH (08:30)
[2020-06-23] MEDS: LEVOFLOXACIN INJ 750 MG in PREMIX 1 EACH IV SCH (09:52)
[2020-06-23] MEDS: APIXABAN 2.5 MG TABLET PO SCH ×2 (09:52→20:36)
[2020-06-23] MEDS: ATORVASTATIN 40 MG TABLET PO SCH (20:36)
[2020-06-24 05:42] LABS: Basophils % 0.3 % (0.0-0.8); Eosinophils % 0.4 % (0.00-10.9); Hematocrit 36.8 VOL% (35.7-47.0); Hemoglobin 11.6 GM/DL (12.0-16.0); Immature Granulocytes % 0.4 %; Immature Granulocytes Absolute 0.03 #; Lymphocytes # 1.3 10*3/uL (1.4-4.0); Lymphocytes % 17.4 % (21.3-54.2); Mean Corpuscular HGB Conc 31.5 GM/DL (32-36); Mean Corpuscular Volume 81.6 FL (87-102); Mean Platelet Volume 11.8 FL (9.6-12.0); Monocytes % 19.9 % (1.7-12.7); Neutrophils % 61.6 % (38.7-73.9); Platelet Count 320 T/CUMM (130-400); Red Blood Count 4.51 MC/CUMM (3.8-5.5); Red Cell Distribution Width 16.7 % (9.3-17.3); White Blood Count 7.4 T/CUMM (4-12)
[2020-06-24 06:03] LABS: Calcium 8.5 MG/DL (8.5-10.1); Osmolality,Calculated 285.1 MOS/KG (273-304)
[2020-06-24 06:08] LABS: Eosinophils 2 % (0-10); Hypochromasia 1+; Lymphocytes 12 % (20-55); Microcytosis 1+; Ovalocytes Slight; Platelet Estimate Adequate; Segmented Neutrophils 59 % (50-85); Total Cells Counted 100
[2020-06-24 06:27] LABS: Calcium 8.5 MG/DL (8.5-10.1); Osmolality,Calculated 283.2 MOS/KG (273-304)
[2020-06-24] MEDS: APIXABAN 2.5 MG TABLET PO SCH ×2 (09:53→21:39)
[2020-06-24] MEDS ORDERED: TUBERCULIN SKIN TEST 0.1 ML SYRINGE INTRADERM ONE (10:38)
[2020-06-24] MEDS: ATORVASTATIN 40 MG TABLET PO SCH (21:39)
[2020-06-25 07:13] LABS: Basophils % 0.4 % (0.0-0.8); Eosinophils % 0.4 % (0.00-10.9); Hematocrit 37.8 VOL% (35.7-47.0); Hemoglobin 11.9 GM/DL (12.0-16.0); Immature Granulocytes % 0.4 %; Immature Granulocytes Absolute 0.03 #; Lymphocytes # 1.3 10*3/uL (1.4-4.0); Lymphocytes % 18.8 % (21.3-54.2); Mean Corpuscular HGB Conc 31.5 GM/DL (32-36); Mean Corpuscular Volume 82.2 FL (87-102); Mean Platelet Volume 12.2 FL (9.6-12.0); Monocytes % 17.4 % (1.7-12.7); Neutrophils % 62.6 % (38.7-73.9); Platelet Count 362 T/CUMM (130-400); Red Cell Distribution Width 16.6 % (9.3-17.3); White Blood Count 7.1 T/CUMM (4-12)
[2020-06-25 07:28] LABS: Calcium 8.7 MG/DL (8.5-10.1); Osmolality,Calculated 296.7 MOS/KG (273-304)
[2020-06-25 07:42] LABS: Atypical Lymphocytes Few; Hypochromasia Slight; Lymphocytes 18 % (20-55); Microcytosis Slight; Ovalocytes Slight; Platelet Estimate Adequate; Segmented Neutrophils 61 % (50-85); Total Cells Counted 100
[2020-06-25] MEDS: APIXABAN 2.5 MG TABLET PO SCH (08:07)
[2020-06-25] MEDS: LEVOFLOXACIN INJ 750 MG in PREMIX 1 EACH IV SCH (08:07)
[2020-06-25 16:11] VITALS: BP 116/67
== END 2020-06-25 17:21 | DRG 64 ==
LOC: N.ED 06:10 → N.EDINP 08:42 → SUATTDRO 08:42 → N.EDINP 14:45 → N.4E 15:05 → N.3E 06-21 17:26
PROVIDERS: ADMIT Internal Medicine; ATTEND Internal Medicine
PROC: EGDWPEG (ICD-10-PCS; 2020-06-20 12:05)

== ENCOUNTER 2020-06-26 16:05 | Inpatient (IN) ==
[2020-06-26] MEDS ORDERED: SODIUM CHLORIDE 0.9% 1,000 ML IV STA (16:50)
[2020-06-26 16:58] LABS: Basophils % 0.3 % (0.0-0.8); Eosinophils % 0.2 % (0.00-10.9); Hematocrit 42.5 VOL% (35.7-47.0); Hemoglobin 13.4 GM/DL (12.0-16.0); Immature Granulocytes % 0.6 %; Immature Granulocytes Absolute 0.06 #; Lymphocytes # 1.3 10*3/uL (1.4-4.0); Lymphocytes % 13.9 % (21.3-54.2); Mean Corpuscular HGB Conc 31.5 GM/DL (32-36); Mean Corpuscular Volume 82.5 FL (87-102); Mean Platelet Volume 11.1 FL (9.6-12.0); Monocytes % 13.3 % (1.7-12.7); Neutrophils % 71.7 % (38.7-73.9); Platelet Count 400 T/CUMM (130-400); Red Blood Count 5.15 MC/CUMM (3.8-5.5); Red Cell Distribution Width 16.8 % (9.3-17.3); White Blood Count 9.6 T/CUMM (4-12)
[2020-06-26 17:15] LABS: ABG Base Excess -0.2 MMOL/L (-2.5-2.5); ABG HCO3 24.2 MMOL/L (20-26); ABG Oxygen Saturation 97.8 % (95-100); ABG PCO2 27.4 MM HG (35-48); ABG PH 7.506 (7.35-7.45); ABG PO2 89.7 MM HG (80-95)
[2020-06-26 17:30] LABS: Albumin 1.9 G/DL (3.4-5.0); Bilirubin,Total 0.6 MG/DL (0.2-1.0); Calcium 8.7 MG/DL (8.5-10.1); Total Protein 6.5 G/DL (6.4-8.3)
[2020-06-26 17:57] LABS: Bacteria,Urine Many /HPF (Few); Bilirubin,Urine Negative (Negative); Blood, Urine Small mg/dL (Negative); Glucose,Urine (UA) Negative (Negative); Ketones,Urine Negative (Negative); Nitrite,Urine Negative (Negative); Protein,Urine 30 MG/DL; RBC,Urine 32 /HPF (0-4); Urine Appearance CLOUDY (Clear); Urine Color Amber (Yellow); Urine Specific Gravity 1.015 (1.001-1.035); WBC,Urine 510 /HPF (0-6)
[2020-06-26] MEDS ORDERED: LEVOFLOXACIN INJ 500 MG in PREMIX 1 EACH IV STA (18:06)
[2020-06-26] MEDS ORDERED: ASPIRIN CHEW 81 MG TABLET PO STA (19:33)
[2020-06-26] MEDS ORDERED: ALUMINUM/MAGNES/SIMETH MAX STR 30 ML UDCUP PO PRN (19:34)
[2020-06-26] MEDS ORDERED: diphenhydrAMINE CAP 25 MG CAPSULE PO PRN (19:34)
[2020-06-26] MEDS ORDERED: DOCUSATE SODIUM 100 MG CAPSULE PO PRN (19:34)
[2020-06-26] MEDS ORDERED: ACETAMINOPHEN 325 MG TABLET PO PRN (19:34)
[2020-06-26] MEDS ORDERED: CALCIUM CARBONATE CHEW 500 MG TABLET PO PRN (19:34)
[2020-06-26] MEDS ORDERED: guaiFENesin/DM ER 600-30 MG TABLET PO PRN (19:34)
[2020-06-26] MEDS ORDERED: SIMETHICONE CHEW 125 MG TABLET PO PRN (19:34)
[2020-06-26] MEDS ORDERED: DEXTROSE 50% 25 GM/50 ML VIAL IV PRN ×2 (19:34)
[2020-06-26] MEDS ORDERED: ONDANSETRON 4 MG/2 ML VIAL IV PRN (19:34)
[2020-06-26] MEDS ORDERED: GLUCAGON 1 MG VIAL IM PRN ×2 (19:34)
[2020-06-26] MEDS ORDERED: NICOTINE 21 MG/24 HR PATCH TRANSDERM PRN (19:34)
[2020-06-26] MEDS ORDERED: hydrALAZINE 20 MG/1 ML VIAL IV PRN (19:34)
[2020-06-26] MEDS ORDERED: HEPARIN DRIP 25,000 UNITS/500 ML PREMIX IV SCH (20:00)
[2020-06-26] MEDS ORDERED: SODIUM POLYSTYRENE SULFATE 15 GM/60 ML BOTTLE RECTAL STA (20:06)
[2020-06-26] MEDS ORDERED: SODIUM POLYSTYRENE SULFATE 15 GM/60 ML BOTTLE RECTAL ONE (20:07)
[2020-06-26] MEDS: SODIUM CHLORIDE 0.9% 1,000 ML IV SCH (20:58)
[2020-06-27] MEDS: DOXYCYCLINE HYCLATE INJ 100 MG in SODIUM CHLORIDE 0.9% 100 ML IV SCH ×3 (00:02→21:28)
[2020-06-27] MEDS: INSULIN LISPRO 100 UNIT/ML SUBCUT SCH ×4 (01:07→17:31)
[2020-06-27] MEDS: ATORVASTATIN 80 MG TABLET PO SCH ×2 (03:14→21:29)
[2020-06-27 05:33] LABS: Basophils % 0.3 % (0.0-0.8); Eosinophils % 0.3 % (0.00-10.9); Hematocrit 36.2 VOL% (35.7-47.0); Hemoglobin 11.4 GM/DL (12.0-16.0); Immature Granulocytes % 0.6 %; Immature Granulocytes Absolute 0.06 #; Lymphocytes # 1.1 10*3/uL (1.4-4.0); Lymphocytes % 10.5 % (21.3-54.2); Mean Corpuscular HGB Conc 31.5 GM/DL (32-36); Mean Corpuscular Volume 82.5 FL (87-102); Mean Platelet Volume 11.6 FL (9.6-12.0); Monocytes % 11.2 % (1.7-12.7); Neutrophils % 77.1 % (38.7-73.9); Platelet Count 349 T/CUMM (130-400); Red Blood Count 4.39 MC/CUMM (3.8-5.5); Red Cell Distribution Width 16.6 % (9.3-17.3); White Blood Count 10.7 T/CUMM (4-12)
[2020-06-27 05:54] LABS: Calcium 8.3 MG/DL (8.5-10.1); Osmolality,Calculated 297.8 MOS/KG (273-304)
[2020-06-27] MEDS: FERROUS SULFATE 325 MG TABLET PO SCH (08:39)
[2020-06-27] MEDS: ISOSORBIDE MONONITRATE 30 MG TABLET PO SCH (08:40)
[2020-06-27] MEDS: METOPROLOL TARTRATE 25 MG TABLET PO SCH ×2 (08:40→21:29)
[2020-06-27] MEDS: ASPIRIN EC 81 MG TABLET PO SCH (08:40)
[2020-06-27] MEDS: PANTOPRAZOLE 40 MG TABLET PO SCH (08:40)
[2020-06-27] MEDS: SODIUM CHLORIDE 0.9% 1,000 ML IV SCH (16:40)
[2020-06-28] MEDS: INSULIN LISPRO 100 UNIT/ML SUBCUT SCH ×3 (06:10→12:49)
[2020-06-28] MEDS ORDERED: SODIUM POLYSTYRENE SULFATE 15 GM/60 ML BOTTLE PO STA (07:04)
[2020-06-28] MEDS: SODIUM CHLORIDE 0.9% 1,000 ML IV SCH (07:58)
[2020-06-28] MEDS: DOXYCYCLINE HYCLATE INJ 100 MG in SODIUM CHLORIDE 0.9% 100 ML IV SCH (07:59)
[2020-06-28] MEDS: ASPIRIN EC 81 MG TABLET PO SCH (08:01)
[2020-06-28] MEDS: ISOSORBIDE MONONITRATE 30 MG TABLET PO SCH (08:01)
[2020-06-28] MEDS: PANTOPRAZOLE 40 MG TABLET PO SCH (08:02)
[2020-06-28] MEDS: FERROUS SULFATE 325 MG TABLET PO SCH (08:02)
[2020-06-28] MEDS: METOPROLOL TARTRATE 25 MG TABLET PO SCH (08:02)
[2020-06-28] MEDS ORDERED: FUROSEMIDE 20 MG TABLET PO SCH (09:00)
[2020-06-28 12:32] VITALS: BP 104/59
== END 2020-06-28 15:50 | disposition hospice, inpatient (51) | DRG 280 ==
LOC: EDUNIT# → N.ED 16:05 → N.EDINP 19:34 → N.TELES 20:47
PROVIDERS: ADMIT Internal Medicine; ATTEND Internal Medicine